=== PATIENT | male | born 1980 | race Caucasian/White ===

== ENCOUNTER 2017-11-15 19:21 | Emergency (ER) | payer OTHER ==
--- NOTE | 2017-11-15 21:58 | ED.PDOC ---
History of Present Illness - General Chief Complaint: Back Pain or Injury Stated Complaint: Back Pain Time Seen by Provider: 11/15/17 21:52 Source: patient Exam Limitations: no limitations - History of Present Illness Initial Comments: Олег Contreras 36 y/o male came to ER with sharp left sided back pain radiating down to his left foot today .Had same episodes in the past stating that it happened when he had done heavy lifting twice starting in 2014.Denies bowel or bladder dysfunction.No weakness or numbness. Timing/Duration: 24 hours Quality/Severity: moderate Back Pain Location: lumbar spine Back Pain Radiation: lower legs - left leg Method of Injury/Prior Injury: other - see hpi Improving Factors: rest Worsening Factors: movement Associated Symptoms: other - see hpi Allergies/Adverse Reactions: Allergies No Known Drug Allergy Allergy (Verified 11/15/17 21:40) Home Medications: Ambulatory Orders Gabapentin [Neurontin] 300 mg PO BEDTIME #30 cap 11/15/17 Methocarbamol [Robaxin] 750 mg PO BID #30 tab 11/15/17 Tramadol HCl 50 mg PO TID PRN #30 tab 11/15/17 predniSONE 20 mg PO DAILY #10 tab 11/15/17 Review of Systems - Review of Systems Constitutional: States: no symptoms reported EENTM: States: no symptoms reported Respiratory: States: no symptoms reported Cardiology: States: no symptoms reported Gastrointestinal/Abdominal: States: no symptoms reported Genitourinary: States: no symptoms reported Endocrine: States: see HPI Past Medical History (General) - Patient Medical History Hx Seizures: No Hx Stroke: No Hx Dementia: No Hx Asthma: No Hx of COPD: No Hx Cardiac Disorders: No Hx Congestive Heart Failure: No Hx Pacemaker: No Hx Hypertension: No Hx Thyroid Disease: No Hx Diabetes: No Hx Gastroesophageal Reflux: No Hx Renal Disease: No Hx Cancer: No Hx of HIV: No Hx Hepatitis C: No Hx MRSA: No Surgical History: no surgical history, other - colonoscopy with colon polyp removal - Vaccination History Hx Tetanus, Diphtheria Vaccination: No Hx Influenza Vaccination: Yes Hx Pneumococcal Vaccination: No Immunizations Up to Date: No - Social History Hx Tobacco Use: Yes Hx Chewing Tobacco Use: No Hx Alcohol Use: Yes - Twice a week Hx Substance Use: No Hx Substance Use Treatment: No Hx Depression: No Feels Threatened In Home Enviroment: No Feels Threatened In a Relationship: No Hx Physical Abuse: No Hx Emotional Abuse: No Hx Suspected Abuse: No - Activities of Daily Living Hospice Agency (if applicable):: None - Female History Patient is a Female of Child Bearing Age (10 -59 yrs old): No Family Medical History - Family History Mother Family History: Unknown Hx Family Cancer: Yes - mom-colon;dad-prostate Physical Exam - Physical Exam General Appearance: Alert, Comfortable, No apparent distress Eyes, Ears, Nose, Throat Exam: normal ENT inspection Neck Exam: non-tender, full range of motion, normal alignment, normal inspection Cardiovascular/Respiratory: regular rate, rhythm, no M/R/G, normal peripheral pulses Peripheral Pulses: radial,right: 2+, radial,left: 2+ Gastrointestinal/Abdominal: normal bowel sounds, non tender, soft, no organomegaly Back Exam: no CVA tenderness, no vertebral tenderness, muscle spasm - both lower back Extremity Exam: no evidence of injury, non-tender, no pedal edema Neurologic: no motor/sensory deficits, alert, oriented x 3, other - straight leg raising 45 degrees;knee jerk reflex 2+ Skin Exam: normal color, warm/dry Progress - Progress Progress: 11/15/17 22:45 Vital Signs - 24 hr 11/15/17 11/15/17 11/15/17 21:40 21:49 22:07 Temperature 97.0 F L 98.2 F Pulse Rate [ 89 91 H Monitor] Respiratory 18 18 16 Rate Blood Pressure 127/85 128/81 [Left Arm] O2 Sat by Pulse 99 94 L Oximetry - EKG/XRAY/CT XRAY: lumbar spine no acute abnormality noted Departure - Departure Clinical Impression: Low back pain radiating down leg Time of Disposition: 22:47 Disposition: Discharge to Home or Self Care Condition: Fair Departure Forms: ED Discharge - Pt. Copy, Patient Portal Self Enrollment Instructions: DI for Back Spasm, DI for Back Pain With Sciatica Prescriptions: Gabapentin [Neurontin] 300 mg PO BEDTIME #30 cap Methocarbamol [Robaxin] 750 mg PO BID #30 tab predniSONE 20 mg PO DAILY #10 tab Tramadol HCl 50 mg PO TID PRN #30 tab PRN Reason: Pain Home Medications: Ambulatory Orders Gabapentin [Neurontin] 300 mg PO BEDTIME #30 cap 11/15/17 Methocarbamol [Robaxin] 750 mg PO BID #30 tab 11/15/17 Tramadol HCl 50 mg PO TID PRN #30 tab 11/15/17 predniSONE 20 mg PO DAILY #10 tab 11/15/17 Additional Instructions: Follow up with primary Md 17 November 2017
[2017-11-15] MEDS ORDERED: predniSONE 10 MG TAB PO ONE (22:10)
[2017-11-15] MEDS ORDERED: ORPHENADRINE CITRATE 30 MG/ML AMP IM ONE (22:10)
[2017-11-15] MEDS ORDERED: KETOROLAC TROMETHAMINE INJ 30 MG/ML VIAL IM ONE (22:10)
[2017-11-15] MEDS ORDERED: GABAPENTIN 300 MG CAP PO ONE (22:10)
[2017-11-15] MEDS ORDERED: HYDROcodone 10MG/APAP 325MG 1 EA TAB PO ONE (22:12)
--- NOTE | 2017-11-15 22:37 | RAD ---
EXAM DESCRIPTION: Lumbar Spine 3 Views CLINICAL HISTORY: pain COMPARISON: None. FINDINGS: 3 views of the lumbar spine. 5 nonrib-bearing lumbar vertebrae. Lumbar vertebral body height preserved without evidence of cortical step-off or subluxation. Intervertebral disc height preserved. Mild endplate spondylosis. No definite facet arthropathy. No abnormalities of visualized portions of the sacrum or pelvic bones. No abnormalities of the abdominal soft tissues. IMPRESSION: 1. No acute abnormality of the lumbar spine by plain film criteria. Electronically signed by: Franky Greenberg 11/15/2017 10:36 PM CDT
[2017-11-15 23:05] VITALS: BP 120/79; TEMP 97.5; O2SAT 99
== END 2017-11-15 23:06 | disposition home or self-care (01) ==
LOC: ER 19:21
DX: M54.42 Lumbago with sciatica, left side (principal); Z87.891 Personal history of nicotine dependence
CPT/HCPCS: 72100; J1885; J2360; J7512